=== PATIENT | male | born 1990 | race Caucasian/White ===

== ENCOUNTER 2024-05-30 17:12 | Emergency (ER) | payer MEDICAID ==
[~2024-05-30] VITALS: Ht 170.2 cm; Wt 74.8 kg
[2024-05-30 17:28] VITALS: BP 113/61; TEMP 98.7; O2SAT 97
== END 2024-05-30 20:22 | disposition left against medical advice (07) ==
LOC: ER 17:34
DX: R10.9 Unspecified abdominal pain (principal); Z53.21 Procedure and treatment not carried out due to patient leaving prior to being seen by health care provider